=== PATIENT | female | born 1975 | race Caucasian/White ===

== ENCOUNTER → 2019-02-02 | Outpatient (CLI) | payer OTHER ==
[~2019-02-02] MED LIST: BENTYL 20 MG TA20 M1 PO; BIRTH CONTROL; PROMETHAZINE12.5 M4 RE
== END ==
LOC: M.ULTRA 07:26
DX: R19.06 Epigastric swelling, mass or lump (principal)

== ENCOUNTER → 2019-03-08 | Outpatient (CLI) | payer OTHER | LOC: M.RAD 10:20 | DX: Z12.31 Encounter for screening mammogram for malignant neoplasm of breast (principal) ==